=== PATIENT | female | born 1965 | race Caucasian/White ===

== ENCOUNTER 2016-08-07 14:16 | Emergency (ER) | payer MEDICAID ==
[~2016-08-07] VITALS: Ht 165.1 cm; Wt 95.0 kg
[2016-08-07 14:17] VITALS: BP 127/78
[2016-08-07] MEDS ORDERED: CEFTRIAXONE SODIUM 500 MG/VIAL IM ONE (17:45)
[2016-08-07] MEDS ORDERED: LIDOCAINE HCL 1% 20ML VIAL (Pyxis) INJ MC ONE (17:45)
== END 2016-08-07 18:58 | disposition home or self-care (01) ==
LOC: ER 14:29
DX: K12.2 Cellulitis and abscess of mouth (principal); Z88.1 Allergy status to other antibiotic agents; J45.909 Unspecified asthma, uncomplicated; F32.9 Major depressive disorder, single episode, unspecified; F17.200 Nicotine dependence, unspecified, uncomplicated
CPT/HCPCS: 96372; 99283; J0696; J3490